=== PATIENT | male | born 1940 | race Caucasian/White ===

== ENCOUNTER → 2024-02-29 | Outpatient (CLI) | payer OTHER ==
[~2024-02-29] MED LIST: DIATR MEGLU/DIATRIZOATE SODIUM 30 ML BOTTLE ONE; IOHEXOL 350 MG/ML 100ML INFUS..BTL IV ONE
== END | disposition home or self-care (01) ==
LOC: RAH 10:13
PROVIDERS: ATTEND Surgery
DX: N28.1 Cyst of kidney, acquired (principal); K80.20 Calculus of gallbladder without cholecystitis without obstruction; K56.609 Unspecified intestinal obstruction, unspecified as to partial versus complete obstruction; M47.815 Spondylosis without myelopathy or radiculopathy, thoracolumbar region; K42.9 Umbilical hernia without obstruction or gangrene
CPT/HCPCS: 74176; Q9963; Q9967

== ENCOUNTER 2025-11-15 06:55 | Day surgery (SDC) | payer OTHER ==
[2025-11-13 08:23] LABS: IMMATURE GRANULOCYTE ABSOLUTE 0.03 K/uL (0-1); NUCLEATED RED BLOOD CELLS 0.0 % (0.0-0.19); PLATELET COUNT (AUTO) 134 K/uL (130-400); RED BLOOD CELL COUNT(AUTO) 3.60 MIL/uL (4.50-6.20); RED CELL DISTRIBUTION WIDTH 17.2 % (11.0-15.5); WHITE BLOOD COUNT (AUTO) 6.8 K/uL (4.8-10.8)
[2025-11-13 08:30] LABS: APPEARANCE,URINE CLEAR (CLEAR); GLUCOSE, URINE (UA) 500 mg/dL (NEGATIVE); LEUKOCYTE ESTERASE ,URINE NEGATIVE Leu/uL (NEGATIVE); NITRATE,URINE NEGATIVE (NEGATIVE); OCCULT BLOOD,URINE NEGATIVE (NEGATIVE)
[2025-11-13 08:31] LABS: CREATININE 1.9 mg/dL (0.5-1.3); GLOMERULAR FILTR. RATE CALC 34.0 mL/min (>90); GLUCOSE,RANDOM 162.0 mg/dL (70-105); SODIUM SERUM 137.0 mmol/L (136-145); UREA NITROGEN, BLOOD 34.0 mg/dL (7-18)
[2025-11-13 08:33] LABS: ADD UA MICROSCOPIC YES
[2025-11-13 08:34] LABS: INR 1.15 (0.85-1.15)
--- NOTE | 2025-11-13 08:39 | EKG ---
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
[2025-11-13 09:02] VITALS: BP 108/61; PULSE 88; RESP 17; TEMP 97.3
--- NOTE | 2025-11-13 09:42 | HMCIMG ---
EXAM: CR Chest, 1 View. CLINICAL HISTORY: PRRE OP COMPARISON: None provided. FINDINGS: Left lower lobe airspace disease may reflect an infectious/inflammatory process. Small to moderate left pleural effusion. No pneumothorax. Pacemaker leads overlie the right atrium and right ventricle. Cardiac device noted. Heart size and pulmonary vessels appear within normal limits. IMPRESSION: 1. Left lower lobe airspace disease, possibly infectious or inflammatory, with small to moderate left pleural effusion. 2. Pacemaker leads in right atrium and right ventricle. /Eva
--- NOTE | 2025-11-14 12:50 | NUR ---
RE: LABS/CXR REPORTED CXR RESULTS, BUN 34 CREAT 1.9 GFR 34 AND HGB 9.5/HCT 31.2 TO LUCIANA DOBSON NP. RECEIVED ORDERS TO HAVE PATIENT HYDRATE TONIGHT AND HOLD PM LASIX. REPEAT LABS IN AM.
--- NOTE | 2025-11-14 14:21 | NUR ---
RE: LABS INSTRUCTED PATIENT NOT TO TAKE LASIX DOSE TONIGHT AND TO HYDRATE TONIGHT WELL. PATIENT VERBALIZED UNDERSTANDING.
[2025-11-15] VITALS (12 sets, daily range): BP systolic 95–136; BP diastolic 58–71; PULSE 60–83; RESP 16–18; TEMP 97.3–98.3
[~2025-11-15] VITALS: Ht 165.1 cm; Wt 73.2 kg
[~2025-11-15 06:55] MED LIST changes: +AMIO200T73 PO; +ASPI-1005 PO; +ATOR40TA71 PO; +DAPA5TAB PO; -DIATR MEGLU/DIATRIZOATE SODIUM 30 ML BOTTLE ONE; +FURO20TA4 PO; +FURO40TA5 PO; -IOHEXOL 350 MG/ML 100ML INFUS..BTL IV ONE; +METF-446 PO; +METO25TA6 PO; +SACU1TAB PO
[2025-11-15 08:24] LABS: CREATININE 1.9 mg/dL (0.5-1.3); GLOMERULAR FILTR. RATE CALC 34.0 mL/min (>90); GLUCOSE,RANDOM 163.0 mg/dL (70-105); SODIUM SERUM 140.0 mmol/L (136-145); UREA NITROGEN, BLOOD 31.0 mg/dL (7-18)
[2025-11-15] MEDS ORDERED: SODIUM BICARB 50MEQ 50ML VIAL 50 ML ONE (09:12)
[2025-11-15] MEDS ORDERED: LIDOCAINE HCL 400MG/20ML VIAL ONE (09:12)
[2025-11-15] MEDS ORDERED: NITROGLYCERIN 50MG VIAL ONE (09:13)
[2025-11-15] MEDS ORDERED: IOHEXOL 350 MG/ML 100ML INFUS..BTL IV ONE (09:13)
[2025-11-15] MEDS ORDERED: HEParin-NS 1,000 UNIT/500 ML 1,000 ML IV ONE (09:13)
[2025-11-15] MEDS: 0.9%NACL 1000ML 1,000 ML IV ONE (09:30)
[2025-11-15] MEDS ORDERED: MIDAZOLAM HCL 1 MG/ML 2ML VIAL ONE ×2 (09:53→10:04)
--- NOTE | 2025-11-15 10:09 | HP ---
This gentleman has been evaluated by us because of severe coronary artery disease and ischemic cardiomyopathy with advanced LV dysfunction and progressive deterioration in his LV function with congestive heart failure. The patient has had coronary artery bypass graft surgery in 2023; however, unfortunately, all his grafts have been documented to be occluded with a patent FISCHER. There was evidence of a significant, but not critical left subclavian stenotic lesion proximal to the FISCHER takeoff. The patient had severe disease in the left circumflex, which was a dominant vessel, as well as a nondominant right. He has an occluded obtuse marginal. This has been a chronic occlusion. Because of the patient's deterioration in his overall status, he had been evaluated and considered for cardiac catheterization and coronary arteriography with an eye towards a percutaneous intervention for the circ system and possibly the OM. The plan was also to measure gradient across the subclavian artery to define if there are any significant stenotic lesions. Unfortunately, the patient's renal function has been compromised, and he has an elevated creatinine, which had been measured at 1.9. His GFR was measured at 34. Today, I have had a detailed discussion with the patient in regards to the findings on his cardiac evaluation and his renal function. I reviewed the alternative modes of management with him and explained to him the potential for deterioration in his renal function and possible dialysis with contrast use. I offered him the option of continued medical management with an eye towards optimizing his medical regimen. After a detailed discussion, he requested to proceed with cardiac catheterization in the hope of improving his myocardial blood supply. He fully understands the benefits, goals, and risks. TID: [id number] RECEIPT: [id number]
[2025-11-15] MEDS ORDERED: ASPIRIN 325MG EC TAB PO ONE (11:33)
[2025-11-15] MEDS ORDERED: 0.9%NACL 1000ML 1,000 ML IV SCH (12:00)
[2025-11-15] MEDS ORDERED: DEXTROSE 50%-WATER 50 ML DISP.SYRIN IV PRN (12:00)
--- NOTE | 2025-11-15 15:39 | CCATH ---
PROCEDURES: * Left heart cath. * Selective left coronary artery angiogram. * Left internal mammary artery angiogram. * Balloon angioplasty and stent placement in the obtuse marginal 1 branch of the circumflex. * Balloon angioplasty and stent of the left PDA. * Overlapping balloon angioplasty and stenting of the mid to proximal circumflex. COMPLICATIONS: None. TOTAL CONTRAST: Approximately 110 mL. INDICATIONS: * Severe coronary artery disease. * Status post coronary artery bypass graft surgery with FISCHER to the LAD and other saphenous vein grafts. 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 * Ischemic cardiomyopathy with advanced LV dysfunction EF of 35-40% with progressive fatigue, dyspnea, and CHF. * Chronic kidney disease. DESCRIPTION OF PROCEDURE: The patient was seen in the Cardiac Invasive Manager after appropriate operative consents were signed. He was prepped and draped in the usual fashion. After conscious sedation was administered, the right femoral artery region was infiltrated with 2% Xylocaine without epinephrine. Utilizing ultrasound guidance, the right common femoral artery was accessed and a 6F sheath was advanced in retrograde fashion with modified Seldinger technique. A Pigtail catheter was advanced over an indwelling wire. This was placed in the left ventricular cavity. Left ventricular end diastolic pressure measurement was obtained. Ventriculography was deferred. The patient has chronic kidney disease and has documented echo assessment of EF by prior recent study. Pullback revealed no evidence of aortic stenosis. At this point, an FL4 6-Slovak catheter was advanced directly engaged in the ostium of the left main. The left main was imaged in multiplane. This was a bymol-pl-[id number] sized vessel that had minor luminal irregularities. The left main trifurcation of the LAD, small intermediate, and a large dominant circumflex. The LAD gave rise to several small diagonals. After the first diagonal, the patient was noted to have tandem 80% lesions in the mid LAD. There was evidence of competitive flow from the mammary artery to the LAD. The intermediate was a small vessel with no significant stenotic lesions. Circumflex was a large vessel that gave rise to several marginal branches and ongoing little river with a PLVB and a PDA. The circ had a 20% proximal lesion. The first obtuse marginal had chronic total occlusion with 100% occluded in its ostial to proximal portion and was seen to fill retrograde via FISCHER injection with a tiny vessel. Next, now the rest of the circumflex had 99% lesion just distal to the level of the OM1 with ongoing significant stenosis that radiated 80%. The distal circ gave rise to several marginal branches and PLVB as well as a left PDA. The left PDA had a 90% stenotic lesion. At this point, the catheter was withdrawn and IMT diagnostic catheter was advanced over an indwelling wire and selectively placed in the left internal mammary artery. This was imaged identifying a moderately large FISCHER supplying and moderately sized distal LAD with good flow. The right coronary artery was not imaged as were his other vein grafts because of documentation of nondominant right that had disease in it; however, as mentioned, nondominant and documentation of all other grafts having been occluded previously. Given the patient's evidence of 50% stenotic lesion in the left subclavian proximal to the FISCHER takeoff, I elected to perform a pullback across the proximal left subclavian artery and there was no evidence of gradient noted; hence, we did not intervene in the left subclavian artery. At this point, we utilized an XB 3.5 6-Slovak guide catheter, which was selectively placed in the ostium of the left main. After full heparinization, two wires were utilized. The first wire went into the distal circumflex and the second wire was utilized to cross the chronic total occlusion with the aid of a 2-mm NC balloon. Once the vessel was crossed, we were able to dilate with a 2-mm balloon and then we followed that by placement of a 2.0 x 22 [place] stent, which was positioned in the ostial to proximal obtuse marginal 1 and inflated to 14 atmospheres at 2.10 mm size. This was followed by balloon angioplasty of the left PDA with a 2-mm balloon and then advancing a 2.25 x 23 Xience drug-eluting stent, which was placed and inflated to 12 atmospheres at 2.42 mm size with good angiographic results. At this point, we addressed the distal to proximal long lesion in the circumflex and we deployed a 2.5 x 33 Xience stent inflated to 4 atmospheres at 2.77 mm size distal circumflex and then we overlapped with a 2.75 x 23 stent in the mid to proximal circumflex traversing the ostium of the first obtuse marginal that had been previously stented. This stent was inflated to 16 atmospheres at 2.91 mm size with good final angiographic results. At this point, the procedure was completed, Mynx was utilized with good hemostasis. The patient tolerated the procedure well and left the Cardiac Invasive Manager in stable condition. FINAL IMPRESSION: * Severe 3-vessel coronary artery disease. * Status post coronary artery bypass graft surgery with FISCHER to the LAD and other multiple saphenous vein grafts. * Ischemic cardiomyopathy with EF of 35-40% with recurrent CHF. * All vein grafts are occluded by prior documentation of the study. * Patent FISCHER to the LAD with no gradient across the subclavian stenosis. * Successful balloon angioplasty and stent placement in the first obtuse marginal branch of the circumflex for chronic total occlusion with a 2.0 x 22 [place]. * Successful balloon angioplasty of the left PDA with a 2.25 x 23 mm Xience [place]. * Successful balloon angioplasty and stenting of the distal, mid, and overlapping proximal circumflex with a 2.5 x 33 SkyPoint stent and a more proximal 2.75 x 23 SkyPoint Xience stent with good angiographic results. PLAN: Continue medical management, optimize the patient's care. TID: [id number] RECEIPT: [id number]
== END 2025-11-15 18:11 | disposition home or self-care (01) ==
LOC: DAH 06:55
PROVIDERS: ATTEND Internal Medicine Cardiovascular Disease
DX: I25.118 Atherosclerotic heart disease of native coronary artery with other forms of angina pectoris (principal); I25.708 Atherosclerosis of coronary artery bypass graft(s), unspecified, with other forms of angina pectoris; I50.42 Chronic combined systolic (congestive) and diastolic (congestive) heart failure; I13.0 Hypertensive heart and chronic kidney disease with heart failure and stage 1 through stage 4 chronic kidney disease, or unspecified chronic kidney disease; E11.22 Type 2 diabetes mellitus with diabetic chronic kidney disease; N18.30 Chronic kidney disease, stage 3 unspecified; I25.5 Ischemic cardiomyopathy; I25.82 Chronic total occlusion of coronary artery; E78.5 Hyperlipidemia, unspecified; I77.1 Stricture of artery; M19.90 Unspecified osteoarthritis, unspecified site; I45.4 Nonspecific intraventricular block; Z95.5 Presence of coronary angioplasty implant and graft; Z96.651 Presence of right artificial knee joint; Z98.890 Other specified postprocedural states; Z79.82 Long term (current) use of aspirin; Z79.899 Other long term (current) drug therapy
CPT/HCPCS: 80048 ×2; 83880; 85025; 85610; 85730; 81001; 36415 ×2; 71045; 93005; 93459; 99156; 99157 ×5; 85347 ×3; 82948; C9607; C1769 ×2; C1894 ×2; C1874 ×4; C1760; C1887; Q9965 ×2; C1725; J3010; J3490 ×3; J7030; J1644 ×3; J2250 ×2; Q9967; A4215; A4221; A4663; A4216; A4606; C9601 ×2; A4223 ×2; 75710; C9600